=== PATIENT | female | born 1955 | race Two or more races ===

== ENCOUNTER 2023-04-01 06:29 | Day surgery (SDC) | payer OTHER | END 2023-04-01 11:10 | disposition home or self-care (01) | LOC: AMB-ENDOS 06:29 | PROVIDERS: ATTEND Colon & Rectal Surgery | DX: K57.30 Diverticulosis of large intestine without perforation or abscess without bleeding (principal); K62.5 Hemorrhage of anus and rectum; R19.4 Change in bowel habit; Z20.822 Contact with and (suspected) exposure to COVID-19; K64.8 Other hemorrhoids ==